=== PATIENT | female | born 1985 | race Caucasian/White ===

== ENCOUNTER 2018-07-27 08:53 | Emergency (ER) | payer OTHER ==
[~2018-07-27] VITALS: Ht 157.5 cm; Wt 69.4 kg
== END 2018-07-27 12:54 | disposition home or self-care (01) ==
LOC: ER 08:53
DX: O46.8X1 Other antepartum hemorrhage, first trimester (principal); Z34.01 Encounter for supervision of normal first pregnancy, first trimester

== ENCOUNTER 2018-09-06 14:50 | Inpatient (IN) | payer OTHER ==
[~2018-09-06] VITALS: Ht 157.5 cm; Wt 69.9 kg
[2018-09-06] MEDS ORDERED: PRENATABS RX T1 EACH PO (16:40)
[2018-09-06] MEDS ORDERED: ZANTAC 7575 MG PO (16:41)
== END 2018-09-08 11:28 | disposition home or self-care (01) | DRG 833 ==
LOC: LDR 14:50 → OB/GYN 14:50
PROVIDERS: ADMIT Obstetrics & Gynecology
DX: O21.0 Mild hyperemesis gravidarum (principal); Z34.81 Encounter for supervision of other normal pregnancy, first trimester

== ENCOUNTER 2018-11-21 17:04 | Emergency (ER) | payer OTHER ==
[~2018-11-21] VITALS: Ht 157.5 cm; Wt 73.5 kg
[~2018-11-21 17:04] MED LIST: PRENATABS RX T1 EACH PO; ZANTAC 7575 MG PO
[2018-11-21] MEDS ORDERED: PANADOL EXTRA500 MG (17:42)
== END 2018-11-21 20:37 | disposition home or self-care (01) ==
LOC: ER 17:04
DX: H66.93 Otitis media, unspecified, bilateral (principal); J02.8 Acute pharyngitis due to other specified organisms

== ENCOUNTER 2019-03-08 10:00 | Inpatient (IN) | payer OTHER ==
[~2019-03-08] VITALS: Ht 157.5 cm; Wt 82.1 kg
[~2019-03-08 10:00] MED LIST changes: +PANADOL EXTRA500 MG
== END 2019-03-28 13:03 | disposition home or self-care (01) | DRG 807 ==
LOC: OB/GYN 03-15 15:15 → LDR 03-26 06:26 → OB/GYN 03-26 13:08
PROVIDERS: ADMIT Obstetrics & Gynecology Maternal & Fetal Medicine
PROC: 10E0XZZ Delivery of Products of Conception, External Approach (ICD-10-PCS; principal; 2019-03-26)
PROC: 0KQM0ZZ Repair Perineum Muscle, Open Approach (ICD-10-PCS; 2019-03-26)
PROC: 3E033VJ Introduction of Other Hormone into Peripheral Vein, Percutaneous Approach (ICD-10-PCS; 2019-03-26)
PROC: 4A1HXCZ Monitoring of Products of Conception, Cardiac Rate, External Approach (ICD-10-PCS; 2019-03-26)
DX: O70.1 Second degree perineal laceration during delivery (principal); Z37.0 Single live birth; Z3A.39 39 weeks gestation of pregnancy

== ENCOUNTER 2019-03-22 14:34 | Outpatient (CLI) | payer OTHER | END 2019-03-22 16:06 | disposition home or self-care (01) | LOC: NST 14:34 | DX: Z34.83 Encounter for supervision of other normal pregnancy, third trimester (principal) ==

== ENCOUNTER 2019-10-28 07:00 | Day surgery (SDC) | payer OTHER ==
[2019-10-28] MEDS ORDERED: PERCOCET 5-3251 EACH PO (11:14)
== END 2019-10-28 14:00 | disposition home or self-care (01) ==
LOC: CIR.AMB 07:00
DX: N83.202 Unspecified ovarian cyst, left side (principal)